=== PATIENT | male | born 1990 | race Caucasian/White ===

== ENCOUNTER 2017-02-19 15:20 | Emergency (ER) | payer BC ==
[~2017-02-19] VITALS: Ht 172.7 cm; Wt 59.1 kg
[~2017-02-19 15:20] MED LIST: CLONIDINE HCL0.1 MG PO; LORTAB 5-325 M1 EACH PO; NAPROSYN500 MG PO; NOHOMEMEDS; TRAZODONE HCL50 MG PO
[2017-02-19] MEDS ORDERED: NAPROSYN500 MG PO (16:54)
[2017-02-19] MEDS ORDERED: PERIDEX1 ML MM (17:07)
[2017-02-19 17:08] VITALS: BP 115/83
== END 2017-02-19 17:09 | disposition home or self-care (01) ==
LOC: EME 15:20
PROC: 0CQ1XZZ Repair Lower Lip, External Approach (ICD-10-PCS; principal; 2017-02-19)
DX: S01.511A Laceration without foreign body of lip, initial encounter (principal); R07.81 Pleurodynia; Y04.8XXA Assault by other bodily force, initial encounter; X99.8XXA Assault by other sharp object, initial encounter; Y07.9 Unspecified perpetrator of maltreatment and neglect; F17.200 Nicotine dependence, unspecified, uncomplicated
CPT/HCPCS: 71020; 99281; 99283

== ENCOUNTER 2017-10-14 20:58 | Emergency (ER) | payer OTHER ==
[~2017-10-14] VITALS: Ht 172.7 cm; Wt 65.9 kg
[~2017-10-14 20:58] MED LIST changes: +PERIDEX1 ML MM
[2017-10-15 01:10] VITALS: BP 134/82
== END 2017-10-15 01:10 | disposition home or self-care (01) ==
LOC: EME → EDBD 20:58 → EME 20:58
DX: T40.1X1A Poisoning by heroin, accidental (unintentional), initial encounter (principal); F12.90 Cannabis use, unspecified, uncomplicated; F17.200 Nicotine dependence, unspecified, uncomplicated
CPT/HCPCS: 93005; 99281; 99285; J2310; J2405; J7030

== ENCOUNTER 2018-04-09 09:12 | Emergency (ER) | payer SELFPAY ==
[~2018-04-09] VITALS: Ht 172.7 cm; Wt 65.8 kg
[2018-04-09 10:10] LABS: CHLORIDE 95 mEq/L (99-109); POTASSIUM 4.1 mEq/L (3.7-5.4); SODIUM 136 mEq/L (136-147)
[2018-04-09 10:11] LABS: GLUCOSE 122 mg/dL (70-99)
[2018-04-09 10:15] LABS: CREATININE 0.8 mg/dL (0.6-1.3); GFR ESTIMATE (CALCULATED) > 59 mL/min/ (58.99-99999)
[2018-04-09 10:16] LABS: UREA NITROGEN (BUN) 6 mg/dL (9-23)
[2018-04-09 10:19] LABS: BASOPHIL (%) 0.3 % (0-1); EOSINOPHIL (%) 0 % (0-5); HEMATOCRIT 33.2 % (38.0-50.0); HEMOGLOBIN 12.1 G/DL (12.5-16.6); IMMATURE GRANULOCYTE (%) 0.6 % (0.0-0.7); LYMPHOCYTE COUNT 0.6 K/uL (1.0-2.8); MCH 38.3 PG (29.0-34.0); MCHC 36.4 G/DL (30.0-36.0); MCV 105.1 FL (86-99); MONOCYTE (%) 4.2 % (3-12); MONOCYTE COUNT 0.1 K/uL (0-0.8); NEUTROPHIL (%) 77.9 % (45-76); NEUTROPHIL COUNT 2.6 K/uL (1.8-6.4); RBC DIS.WIDTH-CV 13.3 % (11.8-14.6); RED BLOOD COUNT 3.16 M/uL (4.00-5.50); WHITE BLOOD COUNT 3.4 K/uL (4.1-10.2)
[2018-04-09 10:42] LABS: IMM.PLATELET FRACTION 4.3 (1-7); PLAT.SUFFICIENCY DECREASED; PLATELET COUNT 60 K/uL (156-360)
[2018-04-09 12:00] LABS: AMPHETAMINE NEGATIVE (500 ng/mL); BARBITURATES NEGATIVE (200 ng/mL); BENZODIAZEPINES PRESUMPTIVE POSITIVE (150 ng/mL); BUPRENORPHINE NEGATIVE (10 ng/mL); COCAINE NEGATIVE (150 ng/mL); METHADONE NEGATIVE (200 ng/mL); METHAMPHETAMINE NEGATIVE (500 ng/mL); OPIATES (MORPHINE) NEGATIVE (100 ng/mL); OXYCODONE NEGATIVE (100 ng/mL); PHENCYCLIDINE NEGATIVE (25 ng/mL); PROPOXYPHENE NEGATIVE (300 ng/mL); THC CANNABINOIDS NEGATIVE (50 ng/mL); TRICYCLIC ANTIDEPRESSANTS NEGATIVE (300 ng/mL)
[2018-04-09 12:42] LABS: BENZODIAZEPINES, URINE SCREEN POSITIVE (200 ng/mL)
[2018-04-09] MEDS ORDERED: LIBRIUM25 MG PO (13:06)
[2018-04-09 13:46] LABS: APPEARANCE CLEAR ((CLEAR)); BILIRUBIN NEGATIVE; BLOOD NEGATIVE; COLOR AMBER ((YELLOW)); GLUCOSE (STRIP) NEGATIVE; KETONES 20; LEUKOCYTES NEGATIVE; NITRITE NEGATIVE; PROTEIN (STRIP) >=500; SPECIFIC GRAVITY 1.027 (1.000-1.030)
[2018-04-09 13:57] LABS: BACTERIA RARE /HPF; EPITHELIAL CELLS NONE SEEN /HPF; MUCUS 2+ /LPF; UCUL ADDED? NO; WHITE BLOOD CELLS 0-5 /HPF (0-5)
[2018-04-09 14:10] VITALS: BP 140/100
== END 2018-04-09 14:16 | disposition home or self-care (01) ==
LOC: EME 09:12
PROVIDERS: Emergency Medicine
DX: R56.9 Unspecified convulsions (principal); F10.20 Alcohol dependence, uncomplicated; Y90.9 Presence of alcohol in blood, level not specified; F17.200 Nicotine dependence, unspecified, uncomplicated
CPT/HCPCS: 70450; 80048; 81003; 84999; 85025; 95819; 99281; 99285; J2060